=== PATIENT | female | born 1975 | race Caucasian/White ===

== ENCOUNTER → 2024-08-11 07:53 | Outpatient (BNVA) | payer OTHER, SELFPAY | PROVIDERS: Visit Provider Thoracic Surgery (Cardiothoracic Vascular Surgery) | DX: I96 Gangrene, not elsewhere classified (principal); T81.31XD Disruption of external operation (surgical) wound, not elsewhere classified, subsequent encounter; Y83.8 Other surgical procedures as the cause of abnormal reaction of the patient, or of later complication, without mention of misadventure at the time of the procedure | CPT/HCPCS: 11042; A6248 ==

== ENCOUNTER → 2024-08-24 14:47 | Outpatient (BNVA) | payer OTHER, SELFPAY | PROVIDERS: Visit Provider Thoracic Surgery (Cardiothoracic Vascular Surgery) | DX: I96 Gangrene, not elsewhere classified (principal); T81.31XD Disruption of external operation (surgical) wound, not elsewhere classified, subsequent encounter; Y83.8 Other surgical procedures as the cause of abnormal reaction of the patient, or of later complication, without mention of misadventure at the time of the procedure | CPT/HCPCS: 97597 ==

== ENCOUNTER → 2024-08-31 15:13 | Outpatient (BNVA) | payer OTHER, SELFPAY | PROVIDERS: Visit Provider Thoracic Surgery (Cardiothoracic Vascular Surgery) | DX: I96 Gangrene, not elsewhere classified (principal); T81.31XD Disruption of external operation (surgical) wound, not elsewhere classified, subsequent encounter; Y83.8 Other surgical procedures as the cause of abnormal reaction of the patient, or of later complication, without mention of misadventure at the time of the procedure | CPT/HCPCS: 97597 ==

== ENCOUNTER → 2024-09-08 10:57 | Outpatient (BNVA) | payer OTHER, SELFPAY | PROVIDERS: Visit Provider Thoracic Surgery (Cardiothoracic Vascular Surgery) | DX: I96 Gangrene, not elsewhere classified (principal); T81.31XD Disruption of external operation (surgical) wound, not elsewhere classified, subsequent encounter; Y83.8 Other surgical procedures as the cause of abnormal reaction of the patient, or of later complication, without mention of misadventure at the time of the procedure | CPT/HCPCS: 97597 ==

== ENCOUNTER → 2024-09-21 10:09 | Outpatient (BNVA) | payer OTHER, SELFPAY | PROVIDERS: Visit Provider Thoracic Surgery (Cardiothoracic Vascular Surgery) | DX: I96 Gangrene, not elsewhere classified (principal); T81.31XD Disruption of external operation (surgical) wound, not elsewhere classified, subsequent encounter; Y83.8 Other surgical procedures as the cause of abnormal reaction of the patient, or of later complication, without mention of misadventure at the time of the procedure | CPT/HCPCS: 97597 ==

== ENCOUNTER → 2024-10-03 09:32 | Outpatient (BNVA) | payer OTHER, SELFPAY | PROVIDERS: Visit Provider Podiatrist Foot & Ankle Surgery | DX: M79.672 Pain in left foot (principal); M79.89 Other specified soft tissue disorders; T81.89XA Other complications of procedures, not elsewhere classified, initial encounter; M76.62 Achilles tendinitis, left leg; Y83.8 Other surgical procedures as the cause of abnormal reaction of the patient, or of later complication, without mention of misadventure at the time of the procedure | CPT/HCPCS: 73630; 99204 ==

== ENCOUNTER 2024-10-11 11:53 | Outpatient (CLI) | payer OTHER, SELFPAY ==
--- NOTE | 2024-10-11 12:15 | MR_ITS ---
WS: [id number] MRI LEFT ANKLE WITHOUT CONTRAST. COMPARISON: Foot radiographs 10/03/2024 Multiplanar, multisequence imaging is performed without contrast. History: Post Achilles tendon repair. There is marked thickening of the distal Achilles repair tendon. This is consistent with the [place] tendon and incorporation of the tendon graft. There is no increased T2 signal. 2 tendon anchors extending through the posterior Achilles tendon into the calcaneus. There is a small amount of edema surrounding the anchor screws. On the recent radiographs there was also lucency surrounding the screws. There is edema and increased T2 signal in the subtalar region and also in the posterior calcaneus. Superficial subcutaneous nodule measuring 1.6 x 0.6 cm along the posterior calcaneus, just superficial to the Achilles anchors. This may be an area of granulomatous soft tissue formation. Small calcaneal spur. Mild loss of the normal arch of the foot. Small amount of marrow edema along the dorsal surface of the intermediate cuneiform. The degenerative in etiology. There is mild narrowing of the tarsal bones Of the tarsal bones are reticulations. Visualized tendons are normal. Normal ligaments. No osteochondral lesions. MR/MR ankle LT wo con* [id number] IMPRESSION: 1. Status post Achilles tendon repair. Satisfactory postoperative appearance of the Achilles tendon. 2. There are 2 posterior anchor screws connecting the distal Achilles tendon to the posterior calcaneus. There is a small amount of edema surrounding the scre ws. There was also lucency surrounding the screws on the recent radiograph. Thi s may indicate early loosening or infection. 3. Subcutaneous nodule over the Achilles anchors measures 1.6 x 0.6 cm. Most li phyllis this is a small suture granuloma.
== END 2024-10-11 11:54 | disposition home or self-care (01) ==
LOC: RAD 11:54
PROVIDERS: Visit Provider Podiatrist Foot & Ankle Surgery
DX: M79.89 Other specified soft tissue disorders (principal); I96 Gangrene, not elsewhere classified; Z98.890 Other specified postprocedural states; T81.31XD Disruption of external operation (surgical) wound, not elsewhere classified, subsequent encounter; Z96.7 Presence of other bone and tendon implants; R60.0 Localized edema; Y83.8 Other surgical procedures as the cause of abnormal reaction of the patient, or of later complication, without mention of misadventure at the time of the procedure; R93.89 Abnormal findings on diagnostic imaging of other specified body structures
CPT/HCPCS: 73721; 97597; A6210

== ENCOUNTER → 2024-10-19 08:37 | Outpatient (BNVA) | payer OTHER, SELFPAY | PROVIDERS: Visit Provider Podiatrist Foot & Ankle Surgery | DX: T81.89XA Other complications of procedures, not elsewhere classified, initial encounter (principal); M76.62 Achilles tendinitis, left leg; Y83.8 Other surgical procedures as the cause of abnormal reaction of the patient, or of later complication, without mention of misadventure at the time of the procedure | CPT/HCPCS: 99214 ==

== ENCOUNTER → 2024-11-01 10:10 | Outpatient (BNVA) | payer OTHER, SELFPAY | PROVIDERS: Visit Provider Podiatrist Foot & Ankle Surgery | DX: T81.89XA Other complications of procedures, not elsewhere classified, initial encounter (principal); M76.62 Achilles tendinitis, left leg; Y83.8 Other surgical procedures as the cause of abnormal reaction of the patient, or of later complication, without mention of misadventure at the time of the procedure | CPT/HCPCS: 99214 ==

== ENCOUNTER 2024-11-20 06:26 | Day surgery (SDC) | payer OTHER, SELFPAY ==
[2024-11-20] VITALS (10 sets, daily range): BP systolic 113–135; BP diastolic 69–87; PULSE 59–70; RESP 15–18; TEMP 36.1–36.6; O2SAT 97–100; BMI 27.6
--- NOTE | 2024-11-20 07:02 | P.HPUD_ITS ---
Surgery/Procedure H&P Update DATE OF PROCEDURE: November 20, 2024 DATE H&P PERFORMED: 11/01/24 H&P UPDATE INFORMATION: I have reviewed H&P completed within last 30 days, I have examined patient prior to procedure, No changes to prior documentation, H&P is in [facility] EMR on date indicated and Risks and benefits of the procedure reviewed PREOP DIAGNOSIS: Left achilles suture granuloma PLANNED PROCEDURE: Operation Date: 11/20/24 08:20 Proposed Procedures p Foreign Body Removal Lower Extremity Excision Achilles Suture Granuloma(Left) - Keith Turk DPM s POSSIBLE LEFT Calcaneus Hardware Removal(Left) - Keith Turk DPM
--- NOTE | 2024-11-20 07:33 | PM.OP ---
Operative Report Date of procedure: November 20, 2024 Surgeon: Keith Turk DPM Procedure: Date of procedure: 11/20/2024 Pre-op diagnosis: Left Achilles suture granuloma Post-op diagnosis: Same Post-op findings: Suture granuloma left Achilles Procedure done: Excision left Achilles suture granuloma CPT 90948 Implants: None Specimens removed: Soft tissue mass left Achilles sent to pathology Surgeon: Dr. Keith Turk DPM Customer Service Cashier: Madelaine Larkin Estimated blood loss: 2 cc Tourniquet time: See intraoperative documentation Complications: None Patient is a 49-year-old female that has a history of what appears to be left Achilles tendon suture granuloma after undergoing Achilles tendon repair by outside provider. The patient has had the aforementioned chief complaint for some time. Conservative treatment measures have been attempted and the patient has opted for surgical intervention at this time. A lengthy discussion regarding the procedure, including risks and complications has been had with the patient and is noted in the recent clinic note. Written and verbal consent have been obtained. All patient questions have been answered to the patient?s satisfaction. No written or verbal guarantees have been given or implied. The patient has been NPO since midnight. The history has been reviewed and the history and physical is current. The signed consent was confirmed and placed in the patient chart. Patient imaging has been reviewed and is consistent with the diagnosis. Under mild sedation, the patient was brought into the operating room and placed on the table in the prone position. IV antibiotics were given by the anesthesia team as preoperative surgical prophylaxis. IV sedation was then performed by the anesthesiateam. A pneumatic tourniquet was then placed about the left thigh. The operative extremity was then prepped and draped in the usual fashion. The extremity was then elevated and exsanguinated before the tourniquet was inflated to 325 mmHg. After inflation, the following procedure was then performed. Attention was directed the posterior aspect of the left Achilles tendon where a soft tissue mass was visualized protruding through the prior incision. Mild active serous drainage. No underlying fluctuance or signs of deep space abscess. #15 blade was used to make an elliptical incision surrounding the soft tissue mass. Dissection was carried down to the level of the peritenon. The mass did not appear to extend deeper than the peritenon. Small amount of FiberWire at the base of the soft tissue mass was removed from the foot. The soft tissue mass was excised and passed from the operative field be sent as specimen. No evidence of infection was noted. Cultures aerobic and anaerobic were taken at this point to ensure no bacterial component to the wound. Site was irrigated with sterile saline. Attention was then directed to closure. Combination of 2-0 and 3-0 Prolene was used to close the wound and retention suture fashion. Patient's quality of skin sergio-incisional he was noted to be poor. After closure of the wound the site was dressed with Xeroform, 4 x 4 gauze, Kerlix, Jesus. Tourniquet was let down good hyperemic response was noted to all digits of the left foot. The patient tolerated the procedure and anesthesia well and without complication. The patient was transported from the operating room to the recovery room with vital signs stable and vascular status intact to all digits of the left foot. The patient was given both written and verbal instructions to remain nonweightbearing to the operative extremity, to keep dressings/splint clean, dry and intact and to take pain medication as directed. The patient will follow-up in the outpatient setting at their scheduled appointment. The patient was discharged with my personal number and was instructed to call if any questions or issues should arise. They were discharged home once anesthesia criteria was met.
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
--- NOTE | 2024-11-20 08:01 | ANES.PROC ---
Anesthesia Procedures Procedure/Date: 11/20/24 Nerve Block ^: Nerve Block 1: Main Anesthesia: other (4mg versed) Time Out Performed: Yes Consent: requested by attending/covering physician Laterality: Left Nerve block location: popliteal Anesthesia monitors applied: pulse oximetry, EKG, BP cuff and oxygen Nerve block position: supine Anesthetic Used: ropivicaine 0.5% Amount of anesthesia used (mL): 30 Ultrasound used to: recognize landmarks Nerve Stimulator Used?: Yes Interscalene/Femoral BLK: other needle (pjunk 4inch) Injection: neg aspiration of heme Patient Tolerated Procedure: well Complications: none Additional Comments: decadron 4mg added to block
[2024-11-20 08:04] LABS: OR HCG Qualitative Urine Negative (Negative)
[2024-11-20] MEDS: ceFAZolin 2,000 mg SDV 2000 MG IVP (08:20)
[2024-11-20] MEDS: BUPivacaine 0.5% INJ 30 mL XX (08:51)
--- NOTE | 2024-11-20 09:08 | P.BOP_ITS ---
Date of procedure: 11/20/24 Surgeon name: Dr. Keith Turk, DPM Director Agricultural Services(s) name(s): Madelaine Larkin Procedure(s) performed: Left achilles suture granuloma excision Description of findings: Left achilles suture granuloma Estimated blood loss: 2cc Tourniquet time: See intraoperative documentation Specimen(s) removed: soft tissue mass left achilles Post-operative diagnosis: suture granuloma
--- NOTE | 2024-11-20 10:17 | ANE.PACU2 ---
Inpatient post-anesthesia follow up: Airway intact: Yes Vital signs: Temperature 97.1 F Pulse Rate 66 Respiratory Rate 17 Blood Pressure 129/86 Pulse Oximetry 99 Oxygen Delivery Me thod Room Air Oxygen Flow Rate Fraction of Inspir ed Oxygen Hydration adequate: Yes Nausea and vomiting: No Pain level: 1 Mental status: Baseline
== END 2024-11-20 10:17 | disposition home or self-care (01) ==
PROVIDERS: Student in an Organized Health Care Education/Training Program; PCP Nurse Practitioner; Visit Provider Podiatrist Foot & Ankle Surgery
PROC: (CPT 28192; principal; 2024-11-20 08:20)
DX: M60.272 Foreign body granuloma of soft tissue, not elsewhere classified, left ankle and foot (principal)
CPT/HCPCS: 28192; 81025; 87070; 87075; 87077; 87186; 87205; 88307; J0690; J2405; J2704; J3010; J3490; J7030; J9999

== ENCOUNTER → 2024-11-23 11:01 | Outpatient (BNVA) | payer OTHER, SELFPAY | PROVIDERS: PCP Nurse Practitioner; Referring Provider Nurse Practitioner; Visit Provider Specialist | DX: G24.3 Spasmodic torticollis (principal); G43.711 Chronic migraine without aura, intractable, with status migrainosus | CPT/HCPCS: 99204 ==

== ENCOUNTER → 2024-12-05 11:04 | Outpatient (BNVA) | payer OTHER, SELFPAY | PROVIDERS: PCP Nurse Practitioner; Visit Provider Podiatrist Foot & Ankle Surgery | DX: T81.89XA Other complications of procedures, not elsewhere classified, initial encounter (principal); M76.62 Achilles tendinitis, left leg; Y84.8 Other medical procedures as the cause of abnormal reaction of the patient, or of later complication, without mention of misadventure at the time of the procedure | CPT/HCPCS: 99213 ==

== ENCOUNTER → 2024-12-18 14:27 | Outpatient (BNVA) | payer OTHER, SELFPAY | PROVIDERS: PCP Nurse Practitioner; Visit Provider Podiatrist Foot & Ankle Surgery | DX: T81.89XA Other complications of procedures, not elsewhere classified, initial encounter (principal); M76.62 Achilles tendinitis, left leg; Y83.8 Other surgical procedures as the cause of abnormal reaction of the patient, or of later complication, without mention of misadventure at the time of the procedure | CPT/HCPCS: 99024 ==